=== PATIENT | female | born 1990 | race Caucasian/White ===

== ENCOUNTER 2017-06-09 02:05 | Emergency (ER) | payer OTHER ==
[~2017-06-09] VITALS: Ht 180.3 cm; Wt 77.1 kg
[2017-06-09 02:10] VITALS: BP 115/66
[2017-06-09] MEDS ORDERED: Morphine Sulfate 4mg/ml Inj IVP ONE ×2 (02:15→03:30)
[2017-06-09 02:34] LABS: MEAN CORPUSCULAR HEMOGLOBIN 28.5 PG (27.0-31.0); MEAN CORPUSCULAR HGB CONC 33.4 G/DL (32.0-36.0); MEAN CORPUSCULAR VOLUME 85 FL (80-99); MEAN PLATELET VOLUME 6.5 FL (6.5-10.1); PLATELET COUNT 398 K/UL (150-450); RED BLOOD COUNT 5.07 M/UL (4.20-5.40)
[2017-06-09 02:36] LABS: WHITE BLOOD COUNT 22.8 K/UL (4.8-10.8)
[2017-06-09 02:45] LABS: ANION GAP 5 mmol/L (5-15); CALCIUM 8.6 MG/DL (8.5-10.1); CARBON DIOXIDE 32 MMOL/L (21-32); CHLORIDE 98 MMOL/L (98-107); CREATININE 0.6 MG/DL (0.55-1.30); GLOMERULAR FILTRATION RATE > 60 mL/min (>60); POTASSIUM 3.7 MMOL/L (3.5-5.1); SODIUM 135 MMOL/L (136-145)
[2017-06-09] MEDS ORDERED: Piperacillin/Tazobactam 3.375 GM in NS 55 ML IVPB ONE (02:45)
[2017-06-09] MEDS ORDERED: Vancomycin 1.5gm/D5W 250ml 250 ML IVPB ONE (02:45)
[2017-06-09] MEDS ORDERED: Zosyn 3.375gm inj ONE (02:56)
[2017-06-09 02:57] LABS: ALANINE AMINOTRANSFERASE 17 U/L (12-78); ALBUMIN/GLOBULIN RATIO 0.5 (1.0-2.7); ASPARTATE AMINO TRANSFERASE 14 U/L (15-37); CKMB < 0.5 NG/ML (0.0-3.6); TOTAL PROTEIN 7.6 G/DL (6.4-8.2)
[2017-06-09 03:05] VITALS: BP 114/68
[2017-06-09 04:00] VITALS: BP 108/64
[2017-06-09 04:18] VITALS: BP 114/68
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
[2017-06-09 04:50] LABS: BAND NEUTROPHILS % (MANUAL) 1 % (0-8); BASOPHILS % (MANUAL) 0 % (0-2); EOSINOPHILS % (MANUAL) 1 % (0-3); LYMPHOCYTES % (MANUAL) 5 % (20-45); NEUTROPHILS % (MANUAL) 86 % (45-75); PLATELET ESTIMATE ADEQUATE; PLATELET MORPHOLOGY NORMAL; TOTAL CELLS COUNTED 100
--- NOTE | 2017-06-09 09:49 | Diagnostic Imaging Report ---
Indication: Right tibial and fibular pain Technique: IV administration nonionic contrast. Spiral acquisitions obtained through the right tibia and fibula. Multiplanar reconstructions were generated. Total dose length product 728 mGycm. CTDIvol(s) 15 mGy. Radiation dose was minimized using automated exposure control Comparison: None Findings: Collection at the interface between the superficial muscular fascia and the subcutaneous fat posteriorly measures 6.8 cm transverse, 2.1 cm thick, and 12.4 cm craniocaudad. This demonstrates slight peripheral enhancement, particularly along the muscular fascia, but is higher than fluid attenuation. A second smaller similar collection is seen more proximally and more posterior lateral. This measures 4 cm oblique transverse by 0.9 cm AP by 5 cm craniocaudad. This appears more circumscribed with surrounding enhancement. Some edema also wraps around the posterior interface medially. There is surrounding mild reticulated edema of the subcutaneous fat which is mostly circumferential, but more focal dense edema is seen in the pretibial region of the midportion of the leg. There is also some skin thickening. There is suggestion of a small anterolateral ulcer in the mid leg. There is posterior skin thickening. No significant vascular abnormality demonstrated. No significant osseous abnormality. Impression: 6.8 by 2.1 x 12.4 cm complex collection at the interface between the superficial muscular fascia in the subcutaneous fat posterior to the right calf musculature. Possibilities include hematoma, abscess, phlegmon. Correlate with clinical findings. Note also a adjacent second similar smaller collection measuring 4 x 0.9 x 5 cm which is more cephalad and lateral Associated mild edema of the subcutaneous fat and skin. Possible small anterolateral ulcer-correlate with clinical findings No significant osseous abnormality This agrees with the preliminary interpretation provided overnight by [facility]. The CT scanner at [facility] is accredited by the [employer] and the scans are performed using protocols designed to limit radiation exposure to as low as reasonably achievable to attain images of sufficient resolution adequate for diagnostic evaluation.
== END 2017-06-09 04:20 | disposition short-term general hospital (02) ==
LOC: EDBD 02:05 → EMR 03:19
DX: L02.415 Cutaneous abscess of right lower limb (principal); R60.9 Edema, unspecified; F15.10 Other stimulant abuse, uncomplicated
CPT/HCPCS: 36415; 73700; 80053; 82550; 82553; 83605; 84484; 84703; 85007; 85025; 87040; 87070; 87181; 87205; 96361; 96365; 96366; 96375; 96376; 99285; J2270; J2543; J3370